=== PATIENT | male | born 1960 | race Caucasian/White ===

== ENCOUNTER 2019-07-02 14:01 | Outpatient (RCR) | payer OTHER, SELFPAY | END 2019-07-14 00:01 | LOC: SPT 14:01 | PROVIDERS: Family Provider Family Medicine; Visit Provider Specialist | DX: S42.302D Unspecified fracture of shaft of humerus, left arm, subsequent encounter for fracture with routine healing (principal); X58.XXXD Exposure to other specified factors, subsequent encounter | CPT/HCPCS: 97110; 97161 ==

== ENCOUNTER 2019-07-15 06:00 | Outpatient (RCR) | payer OTHER, MEDICARE, SELFPAY | END 2019-08-14 23:59 | disposition home or self-care (01) | LOC: SPT 06:00 | PROVIDERS: Family Provider Family Medicine; PCP Family Medicine; Visit Provider Specialist | DX: S49.00 Unspecified physeal fracture of upper end of humerus (principal); X58.XXXD Exposure to other specified factors, subsequent encounter | CPT/HCPCS: 97110 ==

== ENCOUNTER 2019-08-11 02:29 | Observation (INO) | payer OTHER, MEDICARE, SELFPAY ==
[2019-08-11] VITALS (22 sets, daily range): BP systolic 117–163; BP diastolic 46–78; PULSE 62–78; RESP 12–20; TEMP 36.5–36.9; O2SAT 93–100; BMI 31.5
--- NOTE | 2019-08-11 02:35 | ED_ITS ---
Entered by Regi Gan, acting as scribe for Shazia Vaca HPI - Weakness General: Chief complaint: Weakness Stated complaint: generalized weakness Time Seen by Provider: 08/11/19 02:33 Source: patient Mode of arrival: EMS Limitations: no limitations History of Present Illness: HPI Narrative: 59 yo m came to the er by [facility] for weakness. Pt states that he woke up like this. Patient is a very poor historian. [facility] is not available for me to question. Patient's baseline is unknown or and last known well time as well. MD Complaint: generalized weakness Onset (ago): hour(s) Migration: none Severity: mild Relieving factors: none Exacerbating factors: none Associated symptoms: Denies chills, diaphoresis or fever(s) Review of Systems General: Reports: ROS unobtainable due to medical condition PFSH ED PFSH: Statuses (acute, chronic, etc) shown below reflect problem list status as previously entered and may not be historically accurate Social History Smoking and tobacco status: former smoker Physical Exam HENMT: FACE & SINUS: normal facial exam and face symmetric NOSE: nares normal MOUTH: oral and palatal mucosa normal and tongue normal Cardio: COMMON NORMALS: regular rate, regular rhythm, S1 normal heart sound, S2 normal heart sound, no gallops, no clicks, no murmurs and no rub JUGULAR VENOUS DISTENTION: no JVD RATE: regular rate RHYTHM: regular rhythm HEART SOUNDS: S1 normal and S2 normal GI: COMMON NORMALS: soft to palpation, non-tender, no hepatosplenomegaly and no masses INSPECTION: Yes normal to inspection PALPATION: Yes soft and Yes no hepatosplenomegaly : COMMON NORMALS: Yes no CVA tenderness BLADDER/KIDNEY EXAM: Yes no CVA tenderness Back/Pelvis: COMMON NORMALS: no CVA tenderness, thoracic and lumbar spine normal to inspection, no thoracic nor lumbar tenderness and thoraco-lumbar ROM normal Extremity: COMMON NORMALS: normal to inspection, full ROM, normal capillary refill, no joint enlargement, no clubbing, cyanosis or edema and no calf tenderness Neuro: COMMON NORMALS: CN's II-XII intact bilaterally, moves all extremities, no focal motor deficits and no sensory deficits noted Psych: COMMON NORMALS: mental status grossly normal, thought process normal, cooperative, affect normal, speech normal and activity/motor behavior normal SPEECH: Yes normal speech THOUGHT PROCESS: normal thought process Skin: COMMON NORMALS: no rashes or lesions noted, skin turgor normal, no jaundice, no petechiae and no mottling GENERAL SKIN EXAM: no rashes or lesions noted and turgor normal Course Vital Signs: Vital signs: Vital Signs Temperature 97.7 F 08/11/19 02:31 Pulse Rate 70 08/11/19 03:09 Respiratory Rate 18 08/11/19 03:09 Blood Pressure 140/65 08/11/19 03:09 Pulse Oximetry 93 08/11/19 03:09 MDM - Weakness MDM Narrative: Medical decision making narrative: The patient has sulfonylurea induced hypoglycemia. He will need observation in the hospital until he has had complete clearance. After 2 A of D50 and eating the patient is feeling much better and talking normally. I reviewed the case with poison control who is going to fax protocol on how to use octreotide and they agree with D5 half- normal infusion. Further care will be dictated by the hospitalist. I did review the case with Dr. Fraser and he is agreeable to admission. Patient's CT and CTA were performed because of the concern was present for a stroke. EMS did not report a low blood sugar to us. Lab did not report a low blood sugar to us. The CTs were performed as the concern for stroke was present. They would not of been performed head we have now and the patient's blood sugar was low and we could have corrected and seen the change that we did here. Lab Data: Attestation: I reviewed the patient's lab results. Labs: Lab Results 08/11/19 08/11/19 08/11/19 Range/Units 02:45 02:45 02:45 WBC 11.9 H (4.0-10.0) 10^3/ uL RBC 4.36 (4.1-5.3) 10^6/u L Hgb 14.0 (11.7-16.6) g/dL Hct 39.5 L (42.0-52.0) % MCV 90.6 (80-94) fL MCH 32.1 (28.0-34.0) pg MCHC 35.4 (30.0-36.0) g/dL RDW 11.8 L (12.1-15.1) % Plt Count 211 (130-400) 10^3/c mm MPV 8.8 (7.4-10.4) fL Neut % (Auto) 82.2 % Lymph % (Auto) 11.5 % Garrett % (Auto) 4.9 % Eos % (Auto) 0.6 % Baso % (Auto) 0.4 % Neut # (Auto) 9.8 H (1.8-7.7) 10^3/u L Lymph # (Auto) 1.4 (0.8-4.8) 10^3/u L Garrett # (Auto) 0.6 (0.2-0.9) 10^3/u L Eos # (Auto) 0.1 (0.0-0.8) 10^3/u L Baso # (Auto) 0.1 (0.0-0.1) 10^3/u L Nucleated RBC % (a uto) 0 % Nucleated RBCs # 0.0 /100WBC PT 13.90 H (10.5-13.3) SECO NDS INR 1.03 (0.8-1.2) APTT 26.7 (23.9-36.7) SECO NDS Specimen Type Sample Site ABG pH (7.35-7.45) ABG pCO2 (35-45) mmHg ABG pO2 (80.0-100.0) mmH g ABG HCO3 (22-26) mmol/L ABG Base Excess (-2.0-2.0) mmol/ L Sagar Test Hematocrit (42-52) % O2 Delivery Device [employer] Assistant ID Sodium 129 L (136-145) mmol/L Potassium 3.8 (3.5-5.1) mmol/L Chloride 92 L (98-107) mmol/L Carbon Dioxide 24 (22-29) mmol/L Anion Gap 16.8 (5-19) BUN 5 L (8-23) mg/dL Creatinine 0.8 (0.7-1.2) mg/dL GFR Calculation 98.3 (90-130) mL/min Glucose 48 L (74-106) mg/dL POC Glucose (70-110) mg/dL Lactic Acid (0.5-2.2) mmol/L Calcium 10.4 (8.5-10.5) mg/dL Magnesium 2.0 (1.7-2.3) mg/dL Total Bilirubin 1.8 H (0.15-1.2) mg/dL AST 36 (0-40) U/L ALT 38 (0-41) U/L Alkaline Phosphata se 102 (40-130) IU/L Ammonia (16-60) umol/L Creatine Kinase 752 H* (39-308) U/L Troponin T Baselin e (0-15) ng/mL Troponin T 120 Min joan (0-15) ng/mL Delta Troponin T (0-10) ABS# Total Protein 7.4 (6.6-8.7) g/dL Albumin 4.9 (3.5-5.2) g/dL Globulin 2.5 (1.3-4.6) g/dL Lipase 30 (13-60) U/L Ethyl Alcohol < 10 (0-10) mg/dL Serum Ketones (Negative) 08/11/19 08/11/19 08/11/19 Range/Units 02:45 02:45 02:55 WBC (4.0-10.0) 10^3/ uL RBC (4.1-5.3) 10^6/u L Hgb (11.7-16.6) g/dL Hct (42.0-52.0) % MCV (80-94) fL MCH (28.0-34.0) pg MCHC (30.0-36.0) g/dL RDW (12.1-15.1) % Plt Count (130-400) 10^3/c mm MPV (7.4-10.4) fL Neut % (Auto) % Lymph % (Auto) % Garrett % (Auto) % Eos % (Auto) % Baso % (Auto) % Neut # (Auto) (1.8-7.7) 10^3/u L Lymph # (Auto) (0.8-4.8) 10^3/u L Garrett # (Auto) (0.2-0.9) 10^3/u L Eos # (Auto) (0.0-0.8) 10^3/u L Baso # (Auto) (0.0-0.1) 10^3/u L Nucleated RBC % (a uto) % Nucleated RBCs # /100WBC PT (10.5-13.3) SECO NDS INR (0.8-1.2) APTT (23.9-36.7) SECO NDS Specimen Type Sample Site ABG pH (7.35-7.45) ABG pCO2 (35-45) mmHg ABG pO2 (80.0-100.0) mmH g ABG HCO3 (22-26) mmol/L ABG Base Excess (-2.0-2.0) mmol/ L Sagar Test Hematocrit (42-52) % O2 Delivery Device [employer] Assistant ID Sodium (136-145) mmol/L Potassium (3.5-5.1) mmol/L Chloride (98-107) mmol/L Carbon Dioxide (22-29) mmol/L Anion Gap (5-19) BUN (8-23) mg/dL Creatinine (0.7-1.2) mg/dL GFR Calculation (90-130) mL/min Glucose (74-106) mg/dL POC Glucose (70-110) mg/dL Lactic Acid (0.5-2.2) mmol/L Calcium (8.5-10.5) mg/dL Magnesium (1.7-2.3) mg/dL Total Bilirubin (0.15-1.2) mg/dL AST (0-40) U/L ALT (0-41) U/L Alkaline Phosphata se (40-130) IU/L Ammonia 13 L (16-60) umol/L Creatine Kinase (39-308) U/L Troponin T Baselin e 18 H (0-15) ng/mL Troponin T 120 Min joan (0-15) ng/mL Delta Troponin T (0-10) ABS# Total Protein (6.6-8.7) g/dL Albumin (3.5-5.2) g/dL Globulin (1.3-4.6) g/dL Lipase (13-60) U/L Ethyl Alcohol (0-10) mg/dL Serum Ketones Negative (Negative) 08/11/19 08/11/19 08/11/19 Range/Units 02:55 03:00 04:31 WBC (4.0-10.0) 10^3/ uL RBC (4.1-5.3) 10^6/u L Hgb (11.7-16.6) g/dL Hct (42.0-52.0) % MCV (80-94) fL MCH (28.0-34.0) pg MCHC (30.0-36.0) g/dL RDW (12.1-15.1) % Plt Count (130-400) 10^3/c mm MPV (7.4-10.4) fL Neut % (Auto) % Lymph % (Auto) % Garrett % (Auto) % Eos % (Auto) % Baso % (Auto) % Neut # (Auto) (1.8-7.7) 10^3/u L Lymph # (Auto) (0.8-4.8) 10^3/u L Garrett # (Auto) (0.2-0.9) 10^3/u L Eos # (Auto) (0.0-0.8) 10^3/u L Baso # (Auto) (0.0-0.1) 10^3/u L Nucleated RBC % (a uto) % Nucleated RBCs # /100WBC PT (10.5-13.3) SECO NDS INR (0.8-1.2) APTT (23.9-36.7) SECO NDS Specimen Type Arterial Sample Site Radial, right ABG pH 7.41 (7.35-7.45) ABG pCO2 42.3 (35-45) mmHg ABG pO2 64.1 L (80.0-100.0) mmH g ABG HCO3 26.5 H (22-26) mmol/L ABG Base Excess 1.5 (-2.0-2.0) mmol/ L Sagar Test Pos Hematocrit 42.9 (42-52) % O2 Delivery Device None [employer] Assistant ID [email or web address] Sodium (136-145) mmol/L Potassium (3.5-5.1) mmol/L Chloride (98-107) mmol/L Carbon Dioxide (22-29) mmol/L Anion Gap (5-19) BUN (8-23) mg/dL Creatinine (0.7-1.2) mg/dL GFR Calculation (90-130) mL/min Glucose (74-106) mg/dL POC Glucose 52 (70-110) mg/dL Lactic Acid 1.5 (0.5-2.2) mmol/L Calcium (8.5-10.5) mg/dL Magnesium (1.7-2.3) mg/dL Total Bilirubin (0.15-1.2) mg/dL AST (0-40) U/L ALT (0-41) U/L Alkaline Phosphata se (40-130) IU/L Ammonia (16-60) umol/L Creatine Kinase (39-308) U/L Troponin T Baselin e (0-15) ng/mL Troponin T 120 Min joan (0-15) ng/mL Delta Troponin T (0-10) ABS# Total Protein (6.6-8.7) g/dL Albumin (3.5-5.2) g/dL Globulin (1.3-4.6) g/dL Lipase (13-60) U/L Ethyl Alcohol (0-10) mg/dL Serum Ketones (Negative) 08/11/19 08/11/19 Range/Units 04:43 05:15 WBC (4.0-10.0) 10^3/ uL RBC (4.1-5.3) 10^6/u L Hgb (11.7-16.6) g/dL Hct (42.0-52.0) % MCV (80-94) fL MCH (28.0-34.0) pg MCHC (30.0-36.0) g/dL RDW (12.1-15.1) % Plt Count (130-400) 10^3/c mm MPV (7.4-10.4) fL Neut % (Auto) % Lymph % (Auto) % Garrett % (Auto) % Eos % (Auto) % Baso % (Auto) % Neut # (Auto) (1.8-7.7) 10^3/u L Lymph # (Auto) (0.8-4.8) 10^3/u L Garrett # (Auto) (0.2-0.9) 10^3/u L Eos # (Auto) (0.0-0.8) 10^3/u L Baso # (Auto) (0.0-0.1) 10^3/u L Nucleated RBC % (a uto) % Nucleated RBCs # /100WBC PT (10.5-13.3) SECO NDS INR (0.8-1.2) APTT (23.9-36.7) SECO NDS Specimen Type Sample Site ABG pH (7.35-7.45) ABG pCO2 (35-45) mmHg ABG pO2 (80.0-100.0) mmH g ABG HCO3 (22-26) mmol/L ABG Base Excess (-2.0-2.0) mmol/ L Sagar Test Hematocrit (42-52) % O2 Delivery Device [employer]eral [employer] Assistant ID Sodium (136-145) mmol/L Potassium (3.5-5.1) mmol/L Chloride (98-107) mmol/L Carbon Dioxide (22-29) mmol/L Anion Gap (5-19) BUN (8-23) mg/dL Creatinine (0.7-1.2) mg/dL GFR Calculation (90-130) mL/min Glucose (74-106) mg/dL POC Glucose 154 (70-110) mg/dL Lactic Acid (0.5-2.2) mmol/L Calcium (8.5-10.5) mg/dL Magnesium (1.7-2.3) mg/dL Total Bilirubin (0.15-1.2) mg/dL AST (0-40) U/L ALT (0-41) U/L Alkaline Phosphata se (40-130) IU/L Ammonia (16-60) umol/L Creatine Kinase (39-308) U/L Troponin T Baselin e (0-15) ng/mL Troponin T 120 Min joan 15.76 H (0-15) ng/mL Delta Troponin T -2.24 L (0-10) ABS# Total Protein (6.6-8.7) g/dL Albumin (3.5-5.2) g/dL Globulin (1.3-4.6) g/dL Lipase (13-60) U/L Ethyl Alcohol (0-10) mg/dL Serum Ketones (Negative) EKG Data^: EKG 1: Attestation: I personally reviewed and interpreted this EKG as follows: EKG interpretation date: 08/11/19 EKG interpretation time: 02:57 Interpretation: Normal sinus rhythm at 72 beats a minute, nonspecific ST-T wave changes. Discharge Plan Discharge Prescriptions: No Action atorvastatin 40 mg Tablet 40 mg PO QPM RF: 0 Calcium 600 600 mg calcium (1,500 mg) Tablet 600 mg PO BID RF: 0 glipizide 10 mg Tablet 20 mg PO BID RF: 0 aripiprazole 30 mg Tablet 30 mg PO DAILY RF: 0 Vitamin D3 25 mcg (1,000 unit) Capsule 25 mcg PO DAILY RF: 0 trihexyphenidyl 2 mg Tablet 2 mg PO TID RF: 0 lisinopril 5 mg Tablet 5 mg PO BID RF: 0 metformin 1,000 mg Tablet,Er Delfina.Retention 24 Hr 1,500 mg PO BID RF: 0 Coding Level of Care Code ED Jacquard Card Cutter for Chg Fwd Exam Problem Focused The documentation recorded by the Malik alicia Stephanie Lyn, accurately reflects the service I personally performed and the decisions made by Lio connors Eli N Aug 11, 2019 02:29
--- NOTE | 2019-08-11 02:42 | XR_ITS ---
WS: [id number] PORTABLE CHEST HISTORY: cough COMPARISON: None available. Lungs are clear and well expanded. No pleural effusion or pneumothorax. Cardiac size: Normal. Mediastinum/Aorta: Normal mediastinum. Mild AC joint arthritis. XR/XR chest 1V portable [id number] IMPRESSION: Unremarkable portable chest.
--- NOTE | 2019-08-11 02:42 | CTR_ITS ---
PROCEDURE INFORMATION: Exam: CT Head Without Contrast Exam date and time: 08/11/2019 3:41 AM Age: 59 years old Clinical indication: Altered mental status/memory loss; Confusion or disorientation; Additional info: Frye/ams TECHNIQUE: Imaging protocol: Computed tomography of the head without contrast. Total DLP: 893.12 mGy-cm Radiation optimization: All CT scans at this facility use at least one of these dose optimization techniques: automated exposure control; mA and/or kV adjustment per patient size (includes targeted exams where dose is matched to clinical indication); or iterative reconstruction. COMPARISON: CT head wo con* [id number] 2019-05-15 16:21 FINDINGS: Brain: Diffuse mild cerebral age related volume loss. Mild patchy low attenuation in the white matter compatible with mild chronic small vessel ischemic disease. No midline shift, mass, fluid collection, or evidence of hemorrhage. Ventricles: Ventricular enlargement proportional to volume loss. Bones/joints: Unremarkable. No acute fracture. Sinuses: Visualized sinuses are unremarkable. No fluid levels. Mastoid air cells: Visualized mastoid air cells are well aerated. Soft tissues: Unremarkable. CT/CT head wo con* [id number] IMPRESSION: Mild involutional changes, no acute intracranial abnormality. Radiation Dose CTDIVOL = (mGy): DLP = 893.12 (mGy-cm)
--- NOTE | 2019-08-11 02:46 | ECG_ITS ---
Measurements Intervals [place] Rate: 72 P: 24 CA: 225 QRS: -15 QRSD: 113 T: 45 QT: 386 QTc: 425 SINUS RHYTHM WITH FIRST DEGREE AV BLOCK MODERATE INTRAVENTRICULAR CONDUCTION DELAY [110+ ms QRS DURATION] No previous ECG available for comparison Electronically Signed On 08-11-2019 16:18:12 NO BAKE MOLDER by Alex Pablo M.D. [email or web address]
--- NOTE | 2019-08-11 02:51 | PC.NURSE ---
Introduced self to patient and initiated vital signs. Pt is A&O x 4 and agreeable although difficult to understand. Per EMS, states that the patient was disoriented, but pt able to answer all questions for EMS and this faciity. Reassured patient of needs and will continue to monitor. Awaiting provider at bedside.
--- NOTE | 2019-08-11 03:08 | CTR_ITS ---
PROCEDURE INFORMATION: Exam: CT Angiography Head With Contrast Exam date and time: 08/11/2019 3:41 AM Age: 59 years old Clinical indication: Weakness; Additional info: AMS TECHNIQUE: Imaging protocol: Computed tomography angiography of the head with intravenous contrast. 3D rendering: MIP and/or 3D reconstructed images were created by the technologist. Total DLP: 2648.85 mGy-cm Radiation optimization: All CT scans at this facility use at least one of these dose optimization techniques: automated exposure control; mA and/or kV adjustment per patient size (includes targeted exams where dose is matched to clinical indication); or iterative reconstruction. Contrast material: OMNI 350; Contrast volume: 95 ml; Contrast route: IV; COMPARISON: CT head wo con* [id number] 2019-08-11 04:03 FINDINGS: Right internal carotid artery: Mild cavernous and supraclinoid right internal carotid artery atherosclerotic plaque and stenosis. Right anterior cerebral artery: Unremarkable. No occlusion or significant stenosis. No aneurysm. Right middle cerebral artery: Unremarkable. No occlusion or significant stenosis. No aneurysm. Right posterior cerebral artery: Unremarkable. No occlusion or significant stenosis. No aneurysm. Right vertebral artery: Minimal right vertebral artery calcification. Left internal carotid artery: Mild cavernous and supraclinoid left internal carotid artery atherosclerotic plaque and stenosis. Left anterior cerebral artery: Unremarkable. No occlusion or significant stenosis. No aneurysm. Left middle cerebral artery: Unremarkable. No occlusion or significant stenosis. No aneurysm. Left posterior cerebral artery: Unremarkable. No occlusion or significant stenosis. No aneurysm. Left vertebral artery: Minimal left vertebral artery calcification. Basilar artery: Unremarkable. No occlusion or significant stenosis. No aneurysm. Dural sinuses/cerebral veins: The visualized deep and superficial dural venous sinuses and cortical veins are patent. HEAD: Mastoid air cells: Left mastoid effusion. IMPRESSION: No acute abnormality. PROCEDURE INFORMATION: Exam: CT Angiography Neck With Contrast Exam date and time: 08/11/2019 3:41 AM Age: 59 years old Clinical indication: Weakness; Additional info: AMS TECHNIQUE: Imaging protocol: Computed tomography angiography of the neck with intravenous contrast. 3D rendering: MIP and/or 3D reconstructed images were created by the technologist. Total DLP: 2648.85 mGy-cm Radiation optimization: All CT scans at this facility use at least one of these dose optimization techniques: automated exposure control; mA and/or kV adjustment per patient size (includes targeted exams where dose is matched to clinical indication); or iterative reconstruction. Contrast material: OMNI 350; Contrast volume: 95 ml; Contrast route: IV; COMPARISON: CT head wo con* [id number] 2019-08-11 04:03 FINDINGS: VASCULATURE: Right common carotid artery: Mild atherosclerotic plaque in the predominately distal right common carotid artery and the bifurcation. Right internal carotid artery: Mild atherosclerotic plaque in the carotid bulb and proximal right internal carotid artery with less than 50% stenosis by NASCET criteria. Right external carotid artery: Unremarkable. No occlusion or stenosis of the origin. Right vertebral artery: Unremarkable. No stenosis. No dissection or occlusion. Left common carotid artery: Mild atherosclerotic plaque in the predominately distal left common carotid artery and the bifurcation. Left internal carotid artery: Mild atherosclerotic plaque in the proximal left internal carotid artery and carotid bulb with less than 50% stenosis by NASCET criteria. Left external carotid artery: Unremarkable. No occlusion or stenosis of the origin. Left vertebral artery: Unremarkable. No stenosis. No dissection or occlusion. NECK: Bones/joints: No acute fracture. Soft tissues: Normal. No significant soft tissue swelling. Lymph nodes: Shotty mediastinal prevascular lymph nodes. Partially visualized 2 cm right suprahilar lymph nodes. Lungs: Mild paraseptal pulmonary emphysema. CT/CT angio headneck* [id number] IMPRESSION: 1. Mild bilateral proximal ICA atherosclerotic disease with less than 50% stenosis. 2. Shotty mediastinal prevascular lymph nodes. Partially visualized 2 cm right suprahilar lymph nodes. COMMENT: Reference per NASCET criteria for degree of stenosis: Mild: less than 50% stenosis. Moderate: 50-69% stenosis. Severe: 70-94% stenosis. Near occlusion: 95-99% stenosis. Radiation Dose CTDIVOL = (mGy): DLP = 2648.85~2648.85 (mGy-cm)
[2019-08-11 03:10] LABS: ABG PCO2 42.3 mmHg (35-45); ABG PH Result 7.41 (7.35-7.45); Arterial Blood Gas Hematocrit 42.9 % (42-52); Base Excess ABG 1.5 mmol/L (-2.0-2.0); Blood Gas Allen Test Pos; Blood Gas Sample Site Radial, right; Blood Gas Sample Type Arterial; HCO3 ABG 26.5 mmol/L (22-26); PO2 ABG 64.1 mmHg (80.0-100.0)
[2019-08-11 03:13] LABS: INR 1.03 (0.8-1.2)
[2019-08-11 03:14] LABS: Basophils # 0.1 10^3/uL (0.0-0.1); Basophils % 0.4 %; Eosinophils # 0.1 10^3/uL (0.0-0.8); Eosinophils % 0.6 %; Hematocrit 39.5 % (42.0-52.0); Ketone (Acetest) Serum Negative (Negative); Lymphocytes # 1.4 10^3/uL (0.8-4.8); Lymphocytes % 11.5 %; Mean Corpuscular HGB Conc 35.4 g/dL (30.0-36.0); Mean Corpuscular Hemoglobin 32.1 pg (28.0-34.0); Mean Corpuscular Volume 90.6 fL (80-94); Mean Platelet Volume 8.8 fL (7.4-10.4); Monocytes # 0.6 10^3/uL (0.2-0.9); Monocytes % 4.9 %; Neutrophils # 9.8 10^3/uL (1.8-7.7); Neutrophils % 82.2 %; Nucleated Red Blood Cells % 0 %; Partial Thromboplastin Time 26.7 SECONDS (23.9-36.7); Platelet Count 211 10^3/cmm (130-400); Red Blood Count 4.36 10^6/uL (4.1-5.3); Red Cell Distribution Width 11.8 % (12.1-15.1); White Blood Count 11.9 10^3/uL (4.0-10.0)
[2019-08-11 03:15] LABS: Alanine Aminotransferase 38 U/L (0-41); Albumin Level 4.9 g/dL (3.5-5.2); Alkaline Phosphatase 102 IU/L (40-130); Anion Gap 16.8 (5-19); Aspartate Amino Transferase 36 U/L (0-40); Blood Urea Nitrogen 5 mg/dL (8-23); Calcium 10.4 mg/dL (8.5-10.5); Carbon Dioxide 24 mmol/L (22-29); Chloride 92 mmol/L (98-107); Globulin 2.5 g/dL (1.3-4.6); Glomerular Filtration Rate 98.3 mL/min (90-130); Glucose 48 mg/dL (74-106); Lipase 30 U/L (13-60); Potassium 3.8 mmol/L (3.5-5.1); Sodium 129 mmol/L (136-145); Total Bilirubin 1.8 mg/dL (0.15-1.2); Total Protein 7.4 g/dL (6.6-8.7)
[2019-08-11 03:17] LABS: Alcohol Level < 10 mg/dL (0-10); Creatine Phosphokinase 752 U/L (39-308); Troponin(5th) Baseline 18 ng/mL (0-15)
[2019-08-11 03:24] LABS: Ammonia 13 umol/L (16-60); Lactic Sepsis W/Reflex 1.5 mmol/L (0.5-2.2)
[2019-08-11] MEDS: sodium chloride 0.9% 1,000 ML 100 ML IV ×3 (03:24→21:59)
[2019-08-11] MEDS: iohexol 350 mg/mL 100 mL Btl IV (03:42)
[2019-08-11 04:34] LABS: Glucose Point of Care 52 mg/dL (70-110)
--- NOTE | 2019-08-11 05:10 | PC.NURSE ---
Patient now speaking more comprehensively. Patient provided with sandwich, applesauce, and juana crackers.
[2019-08-11 05:16] LABS: Troponin 5 2HR 15.76 ng/mL (0-15)
[2019-08-11 05:20] LABS: Glucose Point of Care 154 mg/dL (70-110)
[2019-08-11 05:33] LABS: Troponin 5 2HR Delta -2.24 ABS# (0-10)
[2019-08-11 06:21] LABS: Glucose Point of Care 180 mg/dL (70-110)
[2019-08-11] MEDS: octreotide 100 mcg/mL SDV 50 MCG SUBCUT (06:28)
[2019-08-11] MEDS: dextrose 5%-sod chloride 0.45% 1,000 ML 125 ML IV (06:28)
[2019-08-11 06:51] LABS: Amphetamines Screen Urine Negative (Negative); Barbiturates Screen Urine Negative (Negative); Benzodiazepines Screen Urine Negative (Negative); Cocaine Screen Urine Negative (Negative); Opiate Screen Urine Negative (Negative); PCP Screen Urine Negative (Negative); THC Screen Urine Negative (Negative)
[2019-08-11] MEDS: dextrose 5%-sod chloride 0.45% 1,000 ML 100 ML IV (08:56)
[2019-08-11 09:07] LABS: Troponin 5 6HR 15.36 ng/L (0-15)
[2019-08-11 09:23] LABS: Troponin 5 6HR Delta -2.64 ng/L (0-12)
--- NOTE | 2019-08-11 09:52 | PM.HP ---
Providers/Chief Complaint Admitting Physician: Yeimy Noe DO Primary Care Provider: Luis Alfredo Mayberry Chief Complaint: generalized weakness History of Present Illness Raffaele Noe is a 59 year old male that presented to the emergency department for altered mental status. Patient reported that he was confused and not acting himself therefore his called the EMS to bring him to the hospital for further evaluation. Patient stated that he had not had any recent illness, no fevers or chills. He stated that he had been eating and drinking without any nausea or vomiting, no abdominal pain. Patient stated that he has had some increased thirst, however no change in appetite or food or fluid intake. He stated that he has not had any recent medication changes. Does not routinely check his blood sugar. Patient was seen and evaluated in the emergency department noted to have hypoglycemia with a blood glucose of 48. Initially there was concern for CVA, as his blood glucose had not been reported and therefore CT scan of the head and CTA of the head and neck was performed. Once hypoglycemia was treated patient had resolution of his symptoms. He stated that he is now feeling much better, denies any weakness or confusion at this time. Review of Systems Const: Denies: fever or chills Eyes: Denies: change in vision ENMT: Denies: nasal congestion Card: Denies: chest pain, palpitations or edema Resp: Denies: shortness of breath, productive cough or coughing up blood GI: Denies: abdominal pain, nausea, vomiting, diarrhea, constipation, blood in stool or black tarry stool : Denies: painful urination or blood in urine Musc: Denies: extremity pain or muscle cramps Skin/Breast: Denies: rash or new lesion Neuro: Denies: headache or dizziness Psych: Denies: anxiety or depression Endo: Reports: excessive thirst; Denies: excessive urination or hot flashes Deandre/Lymph: Denies: easy bruising or easy bleeding Medications/Allergies Home Medications Medication Instructions Recorded Confirmed Last Taken Type aripiprazole 30 mg PO DAILY 08/11/19 08/11/19 Unknown History atorvastatin 40 mg PO QPM 08/11/19 08/11/19 Unknown History calcium carbonate [Calcium 600] 600 mg PO BID 08/11/19 08/11/19 Unknown History cholecalciferol (vitamin D3) 25 mcg PO DAILY 08/11/19 08/11/19 Unknown History [Vitamin D3] glipizide 20 mg PO BID 08/11/19 08/11/19 Unknown History lisinopril 5 mg PO BID 08/11/19 08/11/19 Unknown History metformin 1,500 mg PO BID 08/11/19 08/11/19 Unknown History trihexyphenidyl 2 mg PO TID 08/11/19 08/11/19 Unknown History Allergies Allergy/AdvReac Type Severity Reaction Status Date / Time No Known Allergies Allergy Verified 08/11/19 02:39 PFSH Acute PFSH: Statuses (acute, chronic, etc) shown below reflect problem list status as previously entered and may not be historically accurate Medical History (Updated 08/11/19 @ 09:55 by Yeimy Noe DO) Diabetes mellitus, type II (Acute) Hyperlipidemia (Acute) Hypertension (Acute) Schizophrenia (Acute) Family History (Updated 08/11/19 @ 09:56 by Yeimy Noe DO) Mother CAD (coronary artery disease) Father Cancer Lung cancer Social History (Updated 08/11/19 @ 09:56 by Yeimy Noe DO) Smoking and tobacco status: former smoker Alcohol intake: former Substance/Drug Use: former Marital status: Vitals/I&O/Wt Last Vital Signs Temp 97.7 F 08/11/19 07:00 Pulse 72 08/11/19 07:00 Resp 18 08/11/19 08:00 BP 163/71 08/11/19 07:00 Pulse Ox 98 08/11/19 07:00 08/10/19 08/11/19 08/11/19 22:59 06:59 14:59 Intake Total 240 / 240 Balance 240 / 240 Weight last 48 hrs Weight 99.79 kg Physical Exam Const: COMMON NORMALS: oriented x3 and alert GENERAL APPEARANCE: cooperative ORIENTATION/CONSCIOUSNESS: Yes awake, Yes oriented to person, Yes oriented to place and Yes oriented to time HENMT: COMMON NORMALS: normocephalic and head/scalp atraumatic HEAD & SCALP: normocephalic and atraumatic Eye: COMMON NORMALS: PERRL PUPIL: Yes PERRL Neck/C-Spine: COMMON NORMALS: supple GENERAL: Yes normal visual inspection Resp: COMMON NORMALS: normal respiratory effort and clear to auscultation bilaterally EFFORT & INSPECTION: Yes able to speak in complete sentences AUSCULTATION: clear to auscultation bilaterally, no rhonchi and no wheezes Cardio: COMMON NORMALS: regular rate, regular rhythm and no murmurs RATE: regular rate RHYTHM: regular rhythm GI: COMMON NORMALS: soft to palpation and non-tender INSPECTION: No abdominal distension AUSCULTATION: Yes normoactive bowel sounds PALPATION: Yes soft Extremity: COMMON NORMALS: no clubbing, cyanosis or edema and no calf tenderness Neuro: COMMON NORMALS: oriented x3, CN's II-XII intact bilaterally, moves all extremities and no focal motor deficits SENSORIUM/ORIENTATION: Yes alert, Yes oriented to person, Yes oriented to place and Yes oriented to time SPEECH: speech normal Psych: COMMON NORMALS: mental status grossly normal and cooperative Skin: COMMON NORMALS: no rashes or lesions noted GENERAL SKIN EXAM: no rashes or lesions noted Data : 08/11/19 02:45 08/11/19 02:45 Micro: Microbiology 08/11/19 02:56 Blood Culture - Preliminary Blood SPECIMEN COLLECTED 08/11/19 02:56 Blood Culture - Preliminary Blood SPECIMEN COLLECTED A&P Assessment and plan (1) Hypoglycemia: Hypoglycemia with an initial blood glucose of 48, patient is on glipizide 20 mg twice daily as well as metformin thousand milligrams twice daily. Given D50 x2 in the ED Patient denies any recent medication changes, no recent illness, appetite has been within normal limits. We will check hemoglobin A1c We will decrease sulfonylurea due to hypoglycemia Status: Acute Code(s): E16.2 - Hypoglycemia, unspecified (2) Diabetes mellitus, type II: Patient is on metformin and glipizide at home Due to hypoglycemia will decrease home glipizide We will check A1c as noted above Status: Acute Code(s): E11.9 - Type 2 diabetes mellitus without complications Additional A&P Information Other chronic medical conditions: Hypertension: Continue lisinopril 5 mg Hyperlipidemia: Continue home atorvastatin Schizophrenia: Continue home trihexyphenidyl and Abilify DVT prophylaxis: SCDs Diet: Carbohydrate consistent CODE STATUS: Full code Attestations Medical Necessity Statement*: Patient to be placed on observation due to altered mental status secondary to hypoglycemia. Expected stay less than 2 midnights Coding Level of Care Code Acute Architectural Draftsman for Antoine Weber Diagnoses Hypoglycemia E16.2 Diabetes mellitus, type II E11.9
[2019-08-11 11:09] LABS: Glucose Point of Care 274 mg/dL (70-110)
[2019-08-11] MEDS: cholecalciferol (vitamin D3) 1,000 unit Tablet 1000 UNIT PO (11:09)
[2019-08-11] MEDS: ARIPiprazole 30 mg Tablet PO (11:09)
[2019-08-11 11:31] LABS: Estmated Average Glucose 128; Hemoglobin A1C 6.1 % (4.0-6.0)
[2019-08-11 16:45] LABS: Glucose Point of Care 102 mg/dL (70-110)
[2019-08-11] MEDS: lisinopril 5 mg Tablet PO (18:17)
--- NOTE | 2019-08-11 19:00 | PC.NURSE ---
Introduction of staff and report received, aidet.
[2019-08-11 21:40] LABS: Glucose Point of Care 139 mg/dL (70-110)
[2019-08-12 03:54] VITALS: BP 124/70; PULSE 60; RESP 18; TEMP 36.7; O2SAT 99
[2019-08-12 04:09] LABS: Basophils # 0.1 10^3/uL (0.0-0.1); Basophils % 0.8 %; Eosinophils # 0.4 10^3/uL (0.0-0.8); Eosinophils % 4.7 %; Hemoglobin 13.2 g/dL (11.7-16.6); Mean Corpuscular HGB Conc 34.7 g/dL (30.0-36.0); Mean Corpuscular Hemoglobin 30.8 pg (28.0-34.0); Mean Corpuscular Volume 88.8 fL (80-94); Mean Platelet Volume 9.2 fL (7.4-10.4); Monocytes # 0.5 10^3/uL (0.2-0.9); Monocytes % 6.2 %; Neutrophils # 4.7 10^3/uL (1.8-7.7); Nucleated Red Blood Cells % 0 %; Platelet Count 188 10^3/cmm (130-400); Red Blood Count 4.28 10^6/uL (4.1-5.3); Red Cell Distribution Width 12.1 % (12.1-15.1); White Blood Count 7.6 10^3/uL (4.0-10.0)
[2019-08-12 04:29] LABS: Anion Gap 16.3 (5-19); Blood Urea Nitrogen 11 mg/dL (8-23); CKMB 5.6 ng/mL (0-10.4); Calcium 9.1 mg/dL (8.5-10.5); Carbon Dioxide 23 mmol/L (22-29); Chloride 104 mmol/L (98-107); Creatine Phosphokinase 296 U/L (39-308); Creatinine Clr Calc Pharmacy 102.0612; Glomerular Filtration Rate 85.8 mL/min (90-130); Glucose 108 mg/dL (74-106); Osmolality Calculated 285 mOsm/kg (285-295); Potassium 4.3 mmol/L (3.5-5.1); Sodium 139 mmol/L (136-145)
[2019-08-12 06:43] LABS: Glucose Point of Care 141 mg/dL (70-110)
[2019-08-12 07:30] VITALS: BP 105/59; PULSE 63; RESP 18; TEMP 36.5; O2SAT 95
[2019-08-12] MEDS: cholecalciferol (vitamin D3) 1,000 unit Tablet 1000 UNIT PO (08:01)
[2019-08-12] MEDS: lisinopril 5 mg Tablet PO (08:01)
[2019-08-12] MEDS: sodium chloride 0.9% 1,000 ML 100 ML IV (08:04)
[2019-08-12] MEDS: ARIPiprazole 30 mg Tablet PO (08:07)
--- NOTE | 2019-08-12 09:01 | PM.DCS ---
Discharge Providers Date of Admission: 08/11/19 06:09 Date of Discharge: 08/12/19 Attending Provider at Admission: Yeimy Noe DO Attending Provider at Discharge: Yeimy Noe DO Primary Care Provider: Luis Alfredo Mayberry Diagnoses at Discharge Discharge Diagnosis (1) Hypoglycemia: Status: Acute Problem details: Resolved, sulfonylurea induced (2) Diabetes mellitus, type II: Status: Acute Problem details: Hemoglobin A1c of 6.1, discussed that this is too low and he is likely having hypoglycemic episodes at home. Will hold off on glipizide at this time and restart metformin on 08/13/2019 Other Information Additional DC diagnoses/information: Elevated CK: Resolved Dehydration and hyponatremia: Resolved with IV fluids Mediastinal prevascular lymphadenopathy: This was a finding on CTA, incidental, noted to have 2 cm right suprahilar lymph node. Will recommend repeat imaging in the outpatient setting with primary care provider. Mild bilateral proximal ICA stenosis: Less than 50% based on CTA of the head and neck Reason for Visit Reason for Visit: Reason For Visit: generalized weakness Hospital Course Hospital Course: Patient was seen and evaluated in the emergency department noted to have initial concern for CVA with altered mental status. Patient had CT scan of the head as well as CTA of the head and neck performed and then also noted to have a blood glucose of 48. Patient received 2 A of D50 and showed drastic improvement. He was admitted for further evaluation due to hypoglycemia. He was initially given a dose of octreotide in the ED after poison control was contacted. Patient was then discontinued on normal saline and his home glipizide was held and his blood sugars continue to remain within normal limits. On date of discharge he reported that he was feeling back to his baseline with no concerns, no chest pain or shortness of breath. Patient denied any abdominal pain, no nausea or vomiting. Discussed with patient plan for discharge to home today with close follow-up with his primary care provider and the need to have blood sugar log to present to his primary care provider at time of follow-up. Patient verbalized understanding and agreed with plan. Discharge Summary: Discharge to home Will need follow-up with primary care provider in 3 to 5 days. Will need to discuss CT scan of the chest for further evaluation due to incidental finding of 2 cm right suprahilar lymph node Hold glipizide, restart metformin on 08/13/2019 Keep a blood sugar log and present this to your primary care provider at time of follow-up Physical Exam Const: COMMON NORMALS: oriented x3 and alert GENERAL APPEARANCE: cooperative ORIENTATION/CONSCIOUSNESS: Yes awake, Yes oriented to person, Yes oriented to place and Yes oriented to time HENMT: COMMON NORMALS: normocephalic and head/scalp atraumatic HEAD & SCALP: normocephalic and atraumatic Eye: COMMON NORMALS: PERRL PUPIL: Yes PERRL Neck/C-Spine: COMMON NORMALS: supple GENERAL: Yes normal visual inspection Resp: COMMON NORMALS: normal respiratory effort and clear to auscultation bilaterally EFFORT & INSPECTION: Yes able to speak in complete sentences AUSCULTATION: clear to auscultation bilaterally, no rhonchi and no wheezes Cardio: COMMON NORMALS: regular rate, regular rhythm and no murmurs RATE: regular rate RHYTHM: regular rhythm GI: COMMON NORMALS: soft to palpation and non-tender INSPECTION: No abdominal distension AUSCULTATION: Yes normoactive bowel sounds PALPATION: Yes soft Extremity: COMMON NORMALS: no clubbing, cyanosis or edema and no calf tenderness Neuro: COMMON NORMALS: oriented x3, CN's II-XII intact bilaterally, moves all extremities and no focal motor deficits SENSORIUM/ORIENTATION: Yes alert, Yes oriented to person, Yes oriented to place and Yes oriented to time SPEECH: speech normal Psych: COMMON NORMALS: mental status grossly normal and cooperative Discharge Data Data Completed and Pending: Completed Studies During Hospitalization Category Date Time Status CT angio headneck * [id number] Urge nt Cat Scan 08/11/19 03:[address] head wo con* 7 [id number] Urgent Cat Scan 08/11/19 02:42 Completed XR chest 1V lou ble [id number] Stat Exams 08/11/19 02:42 Completed Pending at discharge Category Date Time Status Blood Culture Sta t Lab 08/11/19 02:56 Results Urinalysis and Mi croscopic Stat Lab 08/11/19 09:13 Ordered Labs from last 24 hours 08/12/19 08/12/19 08/12/19 06:29 03:17 03:17 WBC 7.6 RBC 4.28 Hgb 13.2 Hct 38.0 L MCV 88.8 MCH 30.8 MCHC 34.7 RDW 12.1 Plt Count 188 MPV 9.2 Neut % (Auto) 62.0 Lymph % (Auto) 26.0 [place] % (Auto) 6.2 Eos % (Auto) 4.7 Baso % (Auto) 0.8 Neut # (Auto) 4.7 Lymph # (Auto) 2.0 [place] # (Auto) 0.5 Eos # (Auto) 0.4 Baso # (Auto) 0.1 Nucleated RBC % (a uto) 0 Nucleated RBCs # 0.0 Sodium 139 Potassium 4.3 Chloride 104 Carbon Dioxide 23 Anion Gap 16.3 BUN 11 Creatinine 0.9 GFR Calculation 85.8 L Glucose 108 H POC Glucose 141 Estimat Average Gl ucose Hemoglobin A1c Calculated Osmolal ity 285 Calcium 9.1 Creatine Kinase CK-MB (CK-2) CK-MB (CK-2) Rel I ndex Troponin I 6 Hour Troponin I Hi Sens Del 08/12/19 08/11/19 08/11/19 03:17 21:30 16:31 WBC RBC Hgb Hct MCV MCH MCHC RDW Plt Count MPV Neut % (Auto) Lymph % (Auto) [place] % (Auto) Eos % (Auto) Baso % (Auto) Neut # (Auto) Lymph # (Auto) [place] # (Auto) Eos # (Auto) Baso # (Auto) Nucleated RBC % (a uto) Nucleated RBCs # Sodium Potassium Chloride Carbon Dioxide Anion Gap BUN Creatinine GFR Calculation Glucose POC Glucose 139 102 Estimat Average Gl ucose Hemoglobin A1c Calculated Osmolal ity Calcium Creatine Kinase 296 CK-MB (CK-2) 5.6 CK-MB (CK-2) Rel I ndex Troponin I 6 Hour Troponin I Hi Sens Del 08/11/19 08/11/19 08/11/19 10:54 07:46 02:45 WBC RBC Hgb Hct MCV MCH MCHC RDW Plt Count MPV Neut % (Auto) Lymph % (Auto) [place] % (Auto) Eos % (Auto) Baso % (Auto) Neut # (Auto) Lymph # (Auto) [place] # (Auto) Eos # (Auto) Baso # (Auto) Nucleated RBC % (a uto) Nucleated RBCs # Sodium Potassium Chloride Carbon Dioxide Anion Gap BUN Creatinine GFR Calculation Glucose POC Glucose 274 Estimat Average Gl ucose 128 Hemoglobin A1c 6.1 H Calculated Osmolal ity Calcium Creatine Kinase CK-MB (CK-2) CK-MB (CK-2) Rel I ndex Troponin I 6 Hour 15.36 H Troponin I Hi Sens Del -2.64 L Imaging^: CT Head: Radiologist's impression: CTA Head and Neck IMPRESSION: 1. Mild bilateral proximal ICA atherosclerotic disease with less than 50% stenosis. 2. Shotty mediastinal prevascular lymph nodes. Partially visualized 2 cm right suprahilar lymph nodes. Procedures Performed: None Vitals: Last Vital Signs Temp 97.7 F 08/12/19 07:30 Pulse 63 08/12/19 07:30 Resp 18 08/12/19 07:30 BP 105/59 08/12/19 07:30 Pulse Ox 95 08/12/19 07:30 Discharge Plan Discharge Patient Disposition: Home, Self-Care Condition: Stable Prescriptions: Continued atorvastatin 40 mg Tablet 40 mg PO QPM RF: 0 Calcium 600 600 mg calcium (1,500 mg) Tablet 600 mg PO BID RF: 0 aripiprazole 30 mg Tablet 30 mg PO DAILY RF: 0 Vitamin D3 25 mcg (1,000 unit) Capsule 25 mcg PO DAILY RF: 0 trihexyphenidyl 2 mg Tablet 2 mg PO TID RF: 0 lisinopril 5 mg Tablet 5 mg PO BID RF: 0 metformin 1,000 mg Tablet,Er Delfina.Retention 24 Hr 1,500 mg PO BID RF: 0 Discontinued glipizide 10 mg Tablet 20 mg PO BID RF: 0 Discharge Orders: Discharge Order (Routine); Ordered 08/12/19 Ordered By: Yeimy Noe Referrals: Luis Alfredo Mayberry [Primary Care Provider] - 08/17/19 1:00 pm (Follow-up with primary care provider in 4 to 7 days. Will need to present blood sugar log at this visit. Patient will need to discuss with primary care provider about incidental finding on CT a of the head and neck of mediastinal prevascular lymph nodes, 2 cm in the right suprahilar region. Would recommend outpatient CT scan for further evaluation) Discharge Diet: Diabetic Discharge Activity: Increase activity as tolerated Activity Restrictions/Additional Instructions: Follow-up with your primary care provider in 4 to 7 days. Present a blood sugar log at this appointment for review and adjustment of medications as indicated. Discontinue glipizide. Your hemoglobin A1c was 6.1 Restart metformin on 08/13/[address] scan to be set up by your primary care provider due to incidental finding of mediastinal prevascular lymphadenopathy Discharge Attestations Time Spent in Discharge Care*: greater than 30 min Quality Metrics Clinical Quality Measures During this hospital stay, did patient experience: None Coding Level of Care Code Acute Pole Climber for Chg Fwd Diagnoses Hypoglycemia E16.2 Diabetes mellitus, type II E11.9
[2019-08-12 10:20] VITALS: BP 105/59; PULSE 63; RESP 18; TEMP 36.5; O2SAT 95
[2019-08-12 12:26] LABS: Bilirubin Urine Neg (NEGATIVE); Blood Urine Neg (Negative); Glucose Urine UA Norm (Normal); Ketones Urine Negative (Negative); Leukocyte Esterase Urine Negative (Negative); Nitrate Urine Negative (Negative); Protein Urine Neg (Negative); Specific Gravity, Urine 1.005 (1.005-1.030); Sulfosalicylic Acid Urine Negative; Urine Appearance Clear (CLEAR); Urine Color Colorless (Yellow); Urobilinogen Urine Norm (Negative)
[2019-08-12 12:33] LABS: Add Urine Culture? No; RBC Urine 0-4 /hpf (0-2)
== END 2019-08-12 10:21 | disposition home or self-care (01) ==
LOC: ER 05:51 → MEDSURG 06:09
PROVIDERS: Admitting Provider Internal Medicine; Emergency Provider Emergency Medicine; Family Provider Family Medicine; PCP Family Medicine; Visit Provider Family Medicine
DX: E11.649 Type 2 diabetes mellitus with hypoglycemia without coma (principal); Z79.84 Long term (current) use of oral hypoglycemic drugs; I10 Essential (primary) hypertension; E78.5 Hyperlipidemia, unspecified; F20.9 Schizophrenia, unspecified; E86.0 Dehydration; E87.1 Hypo-osmolality and hyponatremia; Z82.49 Family history of ischemic heart disease and other diseases of the circulatory system
CPT/HCPCS: 12345; 36415; 36416; 36600; 70450; 70496; 70498; 71045; 80048; 80053; 80307; 81001; 82009; 82140; 82550; 82553; 82803; 82962; 83036; 83605; 83690; 83735; 84484; 85025; 85610; 85730; 87040; 93005; 96361; 96372; 96374; 99283; 99285; G0378; J1815; J2354; J7030; J7799; Q9967

== ENCOUNTER 2019-11-26 12:38 | Outpatient (CLI) | payer OTHER, SELFPAY ==
--- NOTE | 2019-11-26 12:52 | CT_ITS ---
WS: [id number] CT CHEST TECHNIQUE: Contrast enhanced CT of the chest with coronal and sagittal reformatted images. CLINICAL INFORMATION: LOCALIZED ENLARGED LYMPH NODES COMPARISON: None. DLP: 992.[address] scans at [facility] use at least one of these dose optimization techniques: automat ed exposure control; mA and/or kV adjustment per patient size (includes targeted exams where dose is matched to clinical indication); or iterative reconstruction. FINDINGS: Moderate chronic emphysematous changes. No acute pulmonary infiltrates. No focal pneumonia. No consol idation or pleural fluid. Small hazy noncalcified groundglass nodule in the right upper lobe measurin g 4 mm. Slight fibrosis in the lung bases medially along the posterior mediastinum. No other suspicio us pulmonary opacities. Normal caliber thoracic aorta. Mild aortic calcification. Proximal main pulmonary arteries are normal . Thyroid gland appears normal. No mediastinal or hilar lymphadenopathy. Adrenal glands are normal. Gallbladder appears normal. Small esophageal hiatal hernia. No axillary ly mphadenopathy. Moderate thoracic kyphosis with hypertrophic changes. A few Schmorl's nodes in the mid thoracic spine. CT/CT chest w con* [id number] IMPRESSION: 1. Moderate chronic emphysematous changes. No consolidation or pleural fluid. No focal pneumonia. 2. Small hazy ground glass nodule right upper lobe measuring 4 mm. Recommend 6 month follow-up. 3. Normal caliber thoracic aorta. Mild aortic calcification. 4. No mediastinal or hilar lymphadenopathy. 5. Small esophageal hiatal hernia.
[2019-11-26 13:35] LABS: Blood Urea Nitrogen 7 mg/dL (8-23)
[2019-11-26] MEDS: iohexol 300 mg/mL 100 mL Btl IV (13:36)
== END 2019-11-26 12:39 | disposition home or self-care (01) ==
PROVIDERS: Family Provider Family Medicine; PCP Family Medicine; Visit Provider Family Medicine
DX: R59.0 Localized enlarged lymph nodes (principal); J43.8 Other emphysema; K44.9 Diaphragmatic hernia without obstruction or gangrene; I70.0 Atherosclerosis of aorta
CPT/HCPCS: 71260; 82565; 84520; Q9967

== ENCOUNTER 2020-05-23 08:57 | Outpatient (CLI) | payer OTHER, SELFPAY ==
--- NOTE | 2020-05-23 09:06 | CT_ITS ---
WS: [id number] CT scan of the chest with IV contrast, additional two-dimensional coronal and sagittal reconstruction was performed. 05/23/2020 Clinical Data: PULMONARY NODULE Comparison: CT chest, 11/26/2019. DLP: 973.[address] scans at [facility] use at least one of these dose optimization techniques: automat ed exposure control; mA and/or kV adjustment per patient size (includes targeted exams where dose is matched to clinical indication); or iterative reconstruction. Findings: The 0.4 cm right upper lobe nodule seen best on image 30 of 63 on the axial views has not changed. No other nodules are seen. No masses or effusions are seen. No pneumonia or pneumothorax is noted. The heart size is normal with no pericardial effusion. The pulmonary arterial system and thoracic aorta demonstrate no abnormaliti es or dilatations. There is no axillary or significant mediastinal adenopathy. There is a small hiata l hernia. The upper abdomen shows no change from before. Degenerative changes of the thoracic vertebral bodies is moderate. CT/CT chest w con* [id number] Impression: 1. No change in 0.4 cm right upper lobe nodule and no further follow-up is morgan mmended. 2. Negative for acute cardiopulmonary disease.
[2020-05-23 10:13] LABS: Blood Urea Nitrogen 8 mg/dL (8-23); Glomerular Filtration Rate 85.5 mL/min (90-130)
[2020-05-23] MEDS: iohexol 300 mg/mL 100 mL Btl IV (10:25)
== END 2020-05-23 08:58 | disposition home or self-care (01) ==
LOC: RADWPI 09:02
PROVIDERS: PCP Family Medicine; Visit Provider Family Medicine
DX: R91.1 Solitary pulmonary nodule (principal)
CPT/HCPCS: 71260; 82565; 84520; Q9967

== ENCOUNTER 2023-08-09 06:55 | Outpatient (CLI) | payer OTHER, SELFPAY ==
--- NOTE | 2023-08-09 | USCV_ITS ---
Noe Raffaele Age: 63 Gender: M : 1960 Exam Date: 08/09/2023 07:23 Ordering Phys: Willow Benedict MD Technologist: Ryne Porter [place]am [place] [facility] [place]: screening HISTORY: Diameter (cm) AP x Transverse x Length Velocity (cm/s) Waveform Prox Aorta: 1.81 x 2.10 x 81.80 Mid Aorta: 1.91 x 1.79 x 81.80 Distal Aorta: 1.60 x 1.73 x 84.60 Right Iliac Prox: 0.92 x 1.06 x 149.70 Left Iliac Prox: 0.94 x 0.85 x 171.90 Stent Prox Landing x x Aneurysmal Sac Max x x Lt Lat Sac Dim Rt Lat Sac Dim Stent Dist Landing x x Right Iliac Stent x x Left Iliac Stent x x Right Renal Art Left Renal Art FINDINGS: CONCLUSIONS No evidence of abdominal aortic or bilateral iliac aneurysm. Mild atheromatous disease Galdino Wells MD (Electronically Signed) Final Date: 09 August 2023 10:05 S
== END 2023-08-09 06:56 | disposition home or self-care (01) ==
LOC: RAD 06:56
PROVIDERS: PCP Family Medicine; Visit Provider Family Medicine
DX: Z13.6 Encounter for screening for cardiovascular disorders (principal); I70.0 Atherosclerosis of aorta
CPT/HCPCS: 76706

== ENCOUNTER → 2024-08-12 15:11 | Outpatient (BNVA) | payer OTHER, SELFPAY | PROVIDERS: PCP Family Medicine; Visit Provider Podiatrist Foot & Ankle Surgery | DX: L60.3 Nail dystrophy (principal); G62.9 Polyneuropathy, unspecified; E11.42 Type 2 diabetes mellitus with diabetic polyneuropathy; Z79.4 Long term (current) use of insulin; Z79.84 Long term (current) use of oral hypoglycemic drugs | CPT/HCPCS: 11721; 99203 ==

== ENCOUNTER → 2024-09-28 13:43 | Outpatient (BNVA) | payer OTHER, SELFPAY | PROVIDERS: PCP Family Medicine; Visit Provider Nurse Practitioner Family | DX: L21.8 Other seborrheic dermatitis (principal); F42.4 Excoriation (skin-picking) disorder; R58 Hemorrhage, not elsewhere classified; L73.9 Follicular disorder, unspecified; L89.311 Pressure ulcer of right buttock, stage 1; L89.321 Pressure ulcer of left buttock, stage 1; L82.1 Other seborrheic keratosis; D22.5 Melanocytic nevi of trunk | CPT/HCPCS: 99204 ==

== ENCOUNTER → 2024-11-16 13:58 | Outpatient (BNVA) | payer OTHER, SELFPAY | PROVIDERS: PCP Family Medicine; Visit Provider Nurse Practitioner Family | DX: L21.8 Other seborrheic dermatitis (principal); L73.9 Follicular disorder, unspecified; F42.4 Excoriation (skin-picking) disorder; R58 Hemorrhage, not elsewhere classified | CPT/HCPCS: 99214 ==

== ENCOUNTER → 2024-12-30 14:04 | Outpatient (BNVA) | payer OTHER, SELFPAY | PROVIDERS: PCP Family Medicine; Visit Provider Podiatrist Foot & Ankle Surgery | DX: E11.42 Type 2 diabetes mellitus with diabetic polyneuropathy (principal); L60.3 Nail dystrophy; L84 Corns and callosities; G62.9 Polyneuropathy, unspecified; Z79.84 Long term (current) use of oral hypoglycemic drugs; Z79.4 Long term (current) use of insulin | CPT/HCPCS: 11055; 11721 ==

== ENCOUNTER → 2025-03-03 14:28 | Outpatient (BNVA) | payer OTHER, SELFPAY | PROVIDERS: PCP Family Medicine; Visit Provider Podiatrist Foot & Ankle Surgery | DX: E11.42 Type 2 diabetes mellitus with diabetic polyneuropathy (principal); L60.3 Nail dystrophy; L84 Corns and callosities; G62.9 Polyneuropathy, unspecified; Z79.84 Long term (current) use of oral hypoglycemic drugs; Z79.4 Long term (current) use of insulin | CPT/HCPCS: 11055; 11721 ==

== ENCOUNTER → 2025-05-20 14:25 | Outpatient (BNVA) | payer OTHER, SELFPAY | PROVIDERS: PCP Family Medicine; Visit Provider Nurse Practitioner Family | DX: L21.8 Other seborrheic dermatitis (principal); L73.8 Other specified follicular disorders; F42.4 Excoriation (skin-picking) disorder; R58 Hemorrhage, not elsewhere classified | CPT/HCPCS: 99214 ==